=== PATIENT | male | born 1965 | race Caucasian/White ===

== ENCOUNTER 2023-06-16 05:15 | Emergency (ER) | payer OTHER ==
[~2023-06-16] VITALS: Ht 182.8 cm; Wt 85.0 kg
[2023-06-16] MEDS ORDERED: FLOVENT HFA12 G1 INH (05:31)
[2023-06-16] MEDS ORDERED: BREYNA 160-4.10.3 GM INH (05:31)
[2023-06-16] MEDS ORDERED: ONDANSETRON4 MG SL (07:14)
== END 2023-06-16 07:28 | disposition home or self-care (01) ==
LOC: ED 05:15
DX: R51.9 Headache, unspecified (principal); R11.2 Nausea with vomiting, unspecified; R63.0 Anorexia; Z88.6 Allergy status to analgesic agent; Z88.5 Allergy status to narcotic agent

== ENCOUNTER 2023-11-16 08:06 | Emergency (ER) | payer OTHER ==
[~2023-11-16] VITALS: Ht 182.8 cm; Wt 87.1 kg
[~2023-11-16 08:06] MED LIST: BREYNA 160-4.10.3 GM INH; FLOVENT HFA12 G1 INH; ONDANSETRON4 MG SL
[2023-11-16] MEDS ORDERED: BUDESONIDE-FO10.2 G1 INH (08:40)
[2023-11-16] MEDS ORDERED: PROVENTIL HFA6.7 GM INH (08:41)
[2023-11-16] MEDS ORDERED: ZYRTEC10 M2 PO (08:41)
[2023-11-16] MEDS ORDERED: Ondansetron Hydrochloride 4 MG TAB SL ONE (08:50)
[2023-11-16 09:20] LABS: BASO % 0.7 % (0.0-1.0); EOS # 0.3 10*3/uL (0.0-0.4); EOS % 4.5 % (1.0-4.0); LYMPH # 1.7 10*3/uL (1.3-4.4); LYMPH % 29.7 % (27.0-41.0); MEAN CELL VOLUME 86.6 fl (80.0-94.0); MEAN CORPUSCULAR HGB CONC 33.5 g/dl (33.0-37.0); MEAN PLATELET VOLUME 9.3 fl (9.6-12.3); MONO # 0.5 10*3/uL (0.1-1.0); MONO % 8.7 % (3.0-9.0); NEUT # 3.2 10*3/uL (2.3-7.9); NEUT % 56.1 % (47.0-73.0); PLATELET COUNT AUTOMATED 298 10*3/uL (130-400); RED BLOOD COUNT 5.89 10*6/uL (4.50-5.90); RED CELL DISTRI WIDTH 12.3 % (0-14.5); WHITE BLOOD COUNT 5.8 10*3/uL (4.8-10.8)
[2023-11-16 09:42] LABS: ALKALINE PHOSPHATASE 71 U/L (46-116); BUN 10 mg/dl (9-23); CHLORIDE 103 mmol/L (98-107); POTASSIUM 3.9 mmol/L (3.4-5.1); SGPT/ALT 51 U/L (5-49); TOTAL PROTEIN 6.9 gm/dL (6.0-8.0)
[2023-11-16] MEDS ORDERED: Promethazine Hydrochloride 25 MG/ML VIAL IV ONE (10:30)
[2023-11-16] MEDS ORDERED: SODIUM CHLORIDE 0.9% 1,000 ML IV ONE (10:30)
[2023-11-16] MEDS ORDERED: PHENERGAN25 M3 PO (12:12)
== END 2023-11-16 12:34 | disposition home or self-care (01) ==
LOC: ED 08:06
PROVIDERS: Internal Medicine
DX: A08.4 Viral intestinal infection, unspecified (principal); Z20.822 Contact with and (suspected) exposure to COVID-19; R11.2 Nausea with vomiting, unspecified; R19.7 Diarrhea, unspecified; Z88.6 Allergy status to analgesic agent; Z88.5 Allergy status to narcotic agent